=== PATIENT | male | born 1950 | race Caucasian/White ===

== ENCOUNTER 2020-03-31 01:27 | Emergency (ER) | payer OTHER ==
[~2020-03-31] VITALS: Ht 167.6 cm; Wt 93.0 kg
[2020-03-31 01:31] VITALS: BP 121/68
[2020-03-31] MEDS ORDERED: ALBUTEROL SULF 2.5 MG/0.5ML(0.5%) NEB SOLN NEB ONE (01:45)
[2020-03-31] MEDS ORDERED: IPRATROPIUM BROM 0.5 MG/2.5ML INH SOL NEB ONE (01:45)
== END 2020-03-31 03:08 | disposition left against medical advice (07) ==
LOC: ER 01:27
DX: R06.02 Shortness of breath (principal); Z53.21 Procedure and treatment not carried out due to patient leaving prior to being seen by health care provider
CPT/HCPCS: 71045; 94640; J7644

== ENCOUNTER 2021-09-11 01:14 | Emergency (ER) | payer OTHER ==
[~2021-09-11] VITALS: Ht 167.6 cm; Wt 93.0 kg
[2021-09-11 04:10] VITALS: BP 151/74
[2021-09-11] MEDS ORDERED: GLUCAGON HYDROCHLORIDE (RDNA) 1 MG VIAL SUBCUT ONE (04:45)
[2021-09-11] MEDS ORDERED: methylPREDNISolone SOD SUCC 125 MG/2 ML VL IM ONE (05:00)
[2021-09-11] MEDS ORDERED: ONDANSETRON ODT 4 MG TAB PO ONE (05:45)
[2021-09-11] MEDS ORDERED: CALCIUM CARB 500 MG CHEW TAB PO ONE (05:45)
[2021-09-11] MEDS ORDERED: LIDOCAINE VISCOUS 2% 15ML UD PO ONE (05:45)
[2021-09-11] MEDS ORDERED: DONNATAL 5ml ORAL Elix (BELLADONNA ALK-PHENOBARB) PO ONE (05:45)
[2021-09-11] MEDS ORDERED: ALUM & MAG HYDROX-SIMETH LIQ(MAALOX) 30 ML PO ONE (05:45)
[2021-09-11] MEDS ORDERED: SIMETHICONE 40 MG/0.6 ML ORAL DROP PO ONE (06:15)
== END 2021-09-11 06:31 | disposition home or self-care (01) ==
LOC: ER 01:19
DX: T17.208A Unspecified foreign body in pharynx causing other injury, initial encounter (principal); J44.9 Chronic obstructive pulmonary disease, unspecified; E66.9 Obesity, unspecified; K21.9 Gastro-esophageal reflux disease without esophagitis; E78.5 Hyperlipidemia, unspecified; Z76.0 Encounter for issue of repeat prescription; Z68.33 Body mass index [BMI] 33.0-33.9, adult; X58.XXXA Exposure to other specified factors, initial encounter; Y93.89 Activity, other specified; Y92.89 Other specified places as the place of occurrence of the external cause; Y99.8 Other external cause status
CPT/HCPCS: 70360; 70490; 96372; 99284; J1610; J2930; Q0162